=== PATIENT | male | born 1990 | race African-American/Black ===

== ENCOUNTER 2022-02-10 18:32 | Emergency (ER) | payer SELFPAY ==
[~2022-02-10] VITALS: Ht 200.7 cm; Wt 92.0 kg
[2022-02-10 20:00] VITALS: BP 124/79
== END 2022-02-10 20:01 | disposition home or self-care (01) ==
LOC: ER 18:32
DX: S00.85XA Superficial foreign body of other part of head, initial encounter (principal); F32.9 Major depressive disorder, single episode, unspecified; Y35.833A Legal intervention involving a conducted energy device, suspect injured, initial encounter; Y93.89 Activity, other specified; Y92.89 Other specified places as the place of occurrence of the external cause; Y99.9 Unspecified external cause status
CPT/HCPCS: 99283